=== PATIENT | male | born 1970 | race Caucasian/White ===

== ENCOUNTER 2023-11-18 15:02 | Emergency (ER) | payer BC, SELFPAY ==
[2023-11-18] VITALS (21 sets, daily range): BP systolic 104–154; BP diastolic 64–91; PULSE 108–135; RESP 15–22; TEMP 37.1; O2SAT 90–95; BMI 30.1
--- NOTE | 2023-11-18 15:25 | ECG_ITS ---
The 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
--- NOTE | 2023-11-18 15:26 | ED_ITS ---
HPI - General Adult General Chief complaint: Back Pain/Injury Stated complaint: BACK PAIN, VOMITTING, DIARRHEA Time Seen by Provider: 11/18/23 15:21 Source: patient Mode of arrival: ambulance Limitations: no limitations History of Present Illness HPI narrative: 53-year-old male presents to the emergency department for nausea vomiting and diarrhea which began last night. He always has back pain but it seems to be a little bit worse today after he has been retching and vomiting. There is no direct injury. No hematemesis or blood in his stool. He has not had a fever. Related Data Previous Rx's Medication Instructions Recorded ondansetron 4 mg disintegrating 4 mg PO Q6H PRN nausea and 11/18/23 tablet vomiting #20 tabs Allergies Allergy/AdvReac Type Severity Reaction Status Date / Time No Known Drug Allergies Allergy Verified 11/18/23 15:08 Review of Systems ROS Narrative A ten point review of systems is negative except as noted above. PFSH PFSH Social History Smoking status: Current every day smoker Exam Narrative Exam Narrative: Nurses note and vital signs reviewed and patient is not hypoxic. General: The patient appears uncomfortable. Skin: Warm, dry, no pallor noted. There is no rash noted. Head: Normocephalic, atraumatic Eye: Normal conjunctiva, no drainage Ears, Nose, Mouth, and Throat: oral mucosa is moist. Nares patent. Cardiovascular: Regular Rate and Rhythm, tachycardic Respiratory: Patient is in no distress, no accessory muscle use, lungs are clear to auscultation, no wheezing, rales or rhonchi Back: No bruise or rash or palpable tenderness to his back. GI: no tenderness to palpation, no masses appreciated. No rebound, guarding, or rigidity noted. Musculoskeletal: The patient has no evidence of calf tenderness, no pitting andrew a, symmetrical pulses noted bilaterally Neurological: A&O, normal speech Psychiatric: Cooperative Constitutional Vital Signs, click to edit/add: Last Vital Signs Temp 98.8 F 11/18/23 15:03 Pulse 135 H 11/18/23 17:40 Resp 22 11/18/23 15:03 BP 129/69 11/18/23 17:30 Pulse Ox 93 L 11/18/23 17:40 O2 Del Method Room Air 11/18/23 15:03 Course Vital Signs Vital signs: Vital Signs Temperature 98.8 F 11/18/23 15:03 Pulse Rate 125 H 11/18/23 15:03 Respiratory Rate 22 11/18/23 15:03 Blood Pressure 149/90 H 11/18/23 15:03 Pulse Oximetry 94 L 11/18/23 15:03 Oxygen Delivery Method Room Air 11/18/23 15:03 Temperature 98.8 F 11/18/23 15:03 Pulse Rate 135 H 11/18/23 17:40 Respiratory Rate 22 11/18/23 15:03 Blood Pressure 129/69 11/18/23 17:30 Pulse Oximetry 93 L 11/18/23 17:40 Oxygen Delivery Method Room Air 11/18/23 15:03 Medical Decision Making MDM Narrative Medical decision making narrative: Blood work nonspecific. He was feeling improved after IV fluids and Zofran and is able to be discharged home. He is tolerating p.o. liquids. Treatment diagnosis and follow-up were discussed with the patient. Differential Diagnosis Differential Diagnosis: Gastroenteritis, nausea and vomiting, dehydration Lab Data Lab results reviewed: Yes I reviewed the patient's lab results Labs: Lab Results 11/18/23 Range/Units 15:13 WBC 11.5 H (4.0-11.0) 10^3/uL RBC 5.31 (4.70-6.10) 10^6/uL Hgb 17.2 (14.0-18.0) g/dL Hct 51.3 (42.0-54.0) % MCV 96.6 H (80.0-94.0) fL MCH 32.4 (25.9-34.0) pg MCHC 33.5 (29.9-35.2) g/dL RDW 12.0 (11.0-15.0) % Plt Count 267 (150-450) 10^3/uL MPV 9.7 (9.5-13.5) fL Neut % (Auto) 89.3 H (43.0-75.0) % Lymph % (Auto) 3.5 L (20.5-60.0) % Victoria % (Auto) 5.8 (1.7-12.0) % Eos % (Auto) 0.6 L (0.9-7.0) % Baso % (Auto) 0.5 (0.2-2.0) % Neut # (Auto) 10.3 H (1.4-6.5) 10^3/uL Lymph # (Auto) 0.4 L (1.2-3.8) 10^3/uL Victoria # (Auto) 0.7 (0.3-0.8) 10^3/uL Eos # (Auto) 0.1 (0.0-0.7) 10^3/uL Baso # (Auto) 0.1 (0.0-0.1) 10^3/uL Abs Immat Gran (auto) 0.03 (0.00-0.03) 10^3/uL Imm/Tot Granulo (auto) 0.3 (0.0-0.5) % Sodium 139 (136-145) mmol/L Potassium 3.9 (3.5-5.1) mmol/L Chloride 105 (98-107) mmol/L Carbon Dioxide 21.0 (21.0-32.0) mmol/L Anion Gap 16.9 BUN 27.0 H (7.0-18.0) mg/dL Creatinine 1.09 (0.70-1.30) mg/dL Est GFR ( Amer) >60 (>=60) Est GFR (Non-Af Amer) >60 (>=60) BUN/Creatinine Ratio 24.8 Glucose 181 H (74-106) mg/dL Calcium 8.4 L (8.5-10.1) mg/dL Discharge Plan Discharge Chief Complaint: Back Pain/Injury Clinical Impression: Nausea & vomiting Patient Disposition: Home, Self-Care Time of Disposition Decision: 17:47 Condition: Good Mode of Transportation: Private Vehicle Prescriptions / Home Meds: New ondansetron 4 mg tablet,disintegrating 4 mg PO Q6H PRN (Reason: nausea and vomiting) Qty: 20 0RF Instructions: Acute Nausea and Vomiting (ED) Stand Alone Forms: Portal Instructions Referrals: NOLAN MENDOZA [Primary Care Provider] - 1 week
[2023-11-18 15:33] LABS: Basophils Absolute Auto 0.1 10^3/uL (0.0-0.1); Basophils Percent Auto 0.5 % (0.2-2.0); Eosinophils Absolute Auto 0.1 10^3/uL (0.0-0.7); Eosinophils Percent Auto 0.6 % (0.9-7.0); Hematocrit 51.3 % (42.0-54.0); Hemoglobin 17.2 g/dL (14.0-18.0); Immature Granulocytes Abs Auto 0.03 10^3/uL (0.00-0.03); Immature Granulocytes Pct Auto 0.3 % (0.0-0.5); Lymphocytes Absolute Auto 0.4 10^3/uL (1.2-3.8); Lymphocytes Percent Auto 3.5 % (20.5-60.0); Mean Corpuscular HGB Conc 33.5 g/dL (29.9-35.2); Mean Corpuscular Hemoglobin 32.4 pg (25.9-34.0); Mean Corpuscular Volume 96.6 fL (80.0-94.0); Mean Platelet Volume 9.7 fL (9.5-13.5); Monocytes Absolute Auto 0.7 10^3/uL (0.3-0.8); Monocytes Percent Auto 5.8 % (1.7-12.0); Neutrophils Absolute Auto 10.3 10^3/uL (1.4-6.5); Neutrophils Percent Auto 89.3 % (43.0-75.0); Platelet Count 267 10^3/uL (150-450); Red Blood Count 5.31 10^6/uL (4.70-6.10); White Blood Count 11.5 10^3/uL (4.0-11.0)
[2023-11-18] MEDS: ONDANSETRON PF 4 MG/2 ML VIAL IV (15:40)
[2023-11-18] MEDS: 0.9 % SODIUM CHLORIDE 1,000 ML 1000 ML IV (15:40)
[2023-11-18] MEDS: KETOROLAC TROMETHAMINE 30 MG/ML VIAL IVP (15:40)
[2023-11-18 15:45] LABS: Anion Gap 16.9; BUN Creatinine Ratio 24.8; Calcium 8.4 mg/dL (8.5-10.1); Chloride 105 mmol/L (98-107); Estimated GFR (African America >60 (>=60); Estimated GFR (Non-African Ame >60 (>=60); Glucose 181 mg/dL (74-106); Potassium 3.9 mmol/L (3.5-5.1); Sodium 139 mmol/L (136-145)
--- NOTE | 2023-11-18 17:32 | ECG_ITS ---
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
== END 2023-11-18 18:11 | disposition home or self-care (01) ==
PROVIDERS: Emergency Provider Emergency Medicine; PCP Family Medicine
DX: R11.2 Nausea with vomiting, unspecified (principal); F17.200 Nicotine dependence, unspecified, uncomplicated
CPT/HCPCS: 36415; 80048; 85025; 93005; 96361; 96374; 96375; 99285; J1885; J2405